=== PATIENT | male | born 1945 | race Caucasian/White ===

== ENCOUNTER → 2017-02-01 | Outpatient (CLI) | payer OTHER, BC | LOC: FIMAGING 12:39 | PROVIDERS: ATTEND Orthopaedic Surgery | DX: M17.12 Unilateral primary osteoarthritis, left knee (principal) ==

== ENCOUNTER 2017-02-27 07:12 | Observation (INO) | payer OTHER, BC ==
[2017-02-27] MEDS ORDERED: LIDOCAINE 1% 2 ML INJ ONE (07:36)
[2017-02-27] MEDS ORDERED: LIDOCAINE 1% 5 ML SDV ID PRN (08:26)
[2017-02-27] MEDS ORDERED: LR 1,000 ML IV ONE (08:26)
[2017-02-27] MEDS ORDERED: DEXAMETHASONE 4 MG/ML VIAL IVP ONE (08:30)
[2017-02-27] MEDS ORDERED: FAMOTIDINE 20 MG TAB PO ONE (08:30)
[2017-02-27] MEDS ORDERED: ACETAMINOPHEN 325 MG TAB PO ONE (08:30)
[2017-02-27] MEDS ORDERED: TRANEXAMIC ACID 3,000 MG in NS 50 ML IRR ONE (08:30)
[2017-02-27] MEDS ORDERED: CEFAZOLIN 2 GM/DEXTR 100 ML IV ONE (08:30)
[2017-02-27] MEDS ORDERED: CHLORHEXIDINE GLUC HIBICLENS 118 ML BTL TP ONE (08:30)
[2017-02-27] MEDS ORDERED: ROPI/epiNEPH/KETOROLAC JOINT COCKTAIL IU ONE (08:30)
[2017-02-27 08:34] LABS: ANION GAP 14 mEq/L (8-16); CALCIUM 9.4 mg/dL (8.5-10.4); CARBON DIOXIDE 22 mEq/l (22-31); CHLORIDE 113 mEq/L (97-110); CREATININE 0.9 mg/dL (0.7-1.3); GLOMERULAR FILTRATION RATE > 60; GLUCOSE 113 mg/dL (70-100); POTASSIUM 3.8 mEq/L (3.5-5.2); SODIUM 149 mEq/L (134-144)
[2017-02-27] MEDS ORDERED: MIDAZOLAM 2 MG/2 ML VIAL ONE (10:06)
[2017-02-27] MEDS ORDERED: LIDOCAINE 2% 100 MG/5 ML SYR ONE (10:20)
[2017-02-27] MEDS ORDERED: PROPOFOL/EMULSION 500 MG/50 ML BOTTLE IV ONE (10:20)
[2017-02-27] MEDS ORDERED: ROPIVACAINE HCL 150 MG/30 ML INJ ONE (10:51)
[2017-02-27] MEDS ORDERED: LACTULOSE 20 GM/30 ML UDCUP PO PRN (11:29)
[2017-02-27] MEDS ORDERED: DIPHENOXYLATE/ATROPINE LOMOTIL 1 TAB PO PRN (11:29)
[2017-02-27] MEDS ORDERED: ONDANSETRON DISINTEGRATING 4 MG TAB PO PRN (11:29)
[2017-02-27] MEDS ORDERED: PROMETHAZINE HCL 25 MG/ML INJ IVP PRN (11:29)
[2017-02-27] MEDS ORDERED: oxyCODONE IR 5 MG TAB PO PRN (11:29)
[2017-02-27] MEDS ORDERED: CYCLOBENZAPRINE 10 MG TAB PO PRN (11:29)
[2017-02-27] MEDS ORDERED: PHARMACY PAIN CONSULT 1 EA MISC PRN (11:29)
[2017-02-27] MEDS ORDERED: POLYETHYLENE GLYCOL 3350 17 GM PKT PO PRN (11:29)
[2017-02-27] MEDS ORDERED: TEMAZEPAM 15 MG CAP PO PRN (11:29)
[2017-02-27] MEDS ORDERED: MAGNESIUM HYDROXIDE 30 ML UDCUP PO PRN (11:29)
[2017-02-27] MEDS ORDERED: PROMETHAZINE HCL 25 MG SUPPR PR PRN (11:29)
[2017-02-27] MEDS ORDERED: METOCLOPRAMIDE 10 MG/2 ML VIAL IVP PRN (11:29)
[2017-02-27] MEDS ORDERED: ONDANSETRON 4 MG/2 ML VIAL IVP PRN (11:29)
[2017-02-27] MEDS ORDERED: diphenhydrAMINE 25 MG CAP PO PRN (11:29)
[2017-02-27] MEDS ORDERED: BISACODYL 10 MG SUPP PR PRN (11:29)
--- NOTE | 2017-02-27 11:29 | POSTOPPROG ---
Post Op Note Date of Operation: 02/27/17 Surgeon: Yola Rosario Blade Operator: cheryl rosario Anesthesiologist: dr. gordon Anesthesia: Spinal, Other (Specify) (adductor canal block) Pre-op Diagnosis: left knee OA Post-op Diagnosis: same Indication: left knee pain due OA that failed conservative measures Procedure: L med MPL robot assisted Findings: severe medial knee OA Inf/Abcess present in the surg proc area at time of surgery?: No EBL: 50-100
[2017-02-27] MEDS: ACETAMINOPHEN 325 MG TAB PO SCH ×3 (12:52→23:33)
[2017-02-27] MEDS: LR 1,000 ML IV SCH (12:52)
[2017-02-27] MEDS: ceFAZolin 2 GM/DEXTROSE 100 ML IV SCH (18:16)
[2017-02-27] MEDS: FAMOTIDINE 20 MG TAB PO SCH (21:59)
[2017-02-27] MEDS: ASPIRIN 325 MG TAB PO SCH (21:59)
[2017-02-27] MEDS: SENNOSIDES/DOCUSATE SODIUM TAB PO SCH (23:17)
[2017-02-28] MEDS: ceFAZolin 2 GM/DEXTROSE 100 ML IV SCH (01:53)
[2017-02-28] MEDS: LR 1,000 ML IV SCH (01:55)
[2017-02-28 05:29] LABS: HEMATOCRIT 36.1 % (40.0-51.0); HEMOGLOBIN 12.6 g/dL (13.7-17.5)
[2017-02-28] MEDS: ACETAMINOPHEN 325 MG TAB PO SCH (05:37)
[2017-02-28 07:58] VITALS: BP 120/78; PULSE 65; RESP 14; TEMP 97.8; O2SAT 93
--- NOTE | 2017-02-28 08:25 | SOAPPROG ---
SOAP Progress Note Assessment/Plan: Assessment: Patient is doing well POD 1 s/p L med MPL Pain management: pain is well controlled on oral pain meds. VTE ppx: recommend aspirin daily for 3 weeks, cont EDGAR and SCDs Anemia: level is expected initially postop. Asymptomatic. Continue to monitor D/c planning: d/c to home today pending release from PT Plan: 02/28/17 08:23 Subjective: Yossi is doing well today, denies SOB, chest pain and N/v. Objective: Vital Signs Temp Pulse Resp BP Pulse Ox 36.6 C 65 14 120/78 93 02/28/17 07:57 02/28/17 07:57 02/28/17 07:57 02/28/17 07:57 02/28/17 07:57 Laboratory Results 02/28/17 05:00 02/27/17 07:52 02/27/17 02/28/17 03/01/17 05:59 05:59 05:59 Intake Total 3620 Output Total 725 Balance 2895 LLE: incision dressing is clean and dry, NVI, +pf/df ICD10 Worksheet Patient Problems: Problems Problem Status Onset Primary localized osteoarthritis of left knee Acute
[2017-02-28] MEDS: ASPIRIN 325 MG TAB PO SCH (08:27)
[2017-02-28] MEDS: SENNOSIDES/DOCUSATE SODIUM TAB PO SCH (08:28)
[2017-02-28] MEDS: FAMOTIDINE 20 MG TAB PO SCH (08:29)
[2017-02-28] MEDS ORDERED: HYDROCHLOROTHIAZIDE 25 MG TAB PO SCH (09:00)
[2017-02-28] MEDS ORDERED: TAMSULOSIN HCL 0.4 MG CAP PO SCH (09:00)
[2017-02-28] MEDS ORDERED: VALSARTAN 160 MG TAB PO SCH (09:00)
[2017-02-28] MEDS ORDERED: NON-FORMULARY NEW DRUG (Valsartan/Hydrochlorothiazide [Valsartan-Hctz 320-25 Mg Tab] 1 EAC PO SCH (09:00)
--- NOTE | 2017-02-28 15:16 | GOP ---
[f rep st] OPERATIVE REPORT DATE OF OPERATION: 02/27/2017 SURGEON: Suzette Newell MD RUG SETTER AXMINSTER: Tamiko Newell PA-C. ANESTHESIA: Spinal. PREOPERATIVE DIAGNOSIS: Left knee osteoarthritis. POSTOPERATIVE DIAGNOSIS: Left knee osteoarthritis. PROCEDURE PERFORMED: Left medial compartment partial knee replacement with computer navigation and robotic assist. FINDINGS/PATHOLOGY: Severe medial compartment osteoarthritis. ESTIMATED BLOOD LOSS: 30 cc INDICATIONS: This is a 72-year-old male with severe and progressive pain and deformity of the left knee unresponsive to conservative care. Risks and benefits of the surgical intervention were explained in detail. DESCRIPTION OF PROCEDURE: The patient was brought to the operating room and placed on the table in supine position. Spinal anesthesia was induced without difficulty. A pneumatic tourniquet was applied about the left proximal thigh and the leg was prepped and draped in sterile fashion. Attention was turned first to the distal aspect of the left femur. At 3 cm proximal to the lateral rise of the femur, 2 percutaneous half pins were placed for fixation of the femoral array. In a similar fashion, 2 pins were placed anterolateral on the tibia for fixation of the tibial array. External land marking and registration of the hip center was performed without difficulty. After exsanguination by elevation, the tourniquet was inflated to 250 mmHg. Incision was made from the tibial tuberosity to the superior pole of the patella. Dissection was carried out through the subcutaneous tissue to the deep fascia using Bovie electrocautery for hemostasis. Medial parapatellar arthrotomy was carried out to the superior pole of the patella. The medial collateral ligament was elevated and the infrapatellar fat pad was resected. Internal femoral and tibial registration was carried out without difficulty and the femoral and tibial checkpoints were placed and verified for accuracy. Attention was turned to the femur. The foot print for the size 4 femoral component was cut with the 6 mm bur using the [employer] robotic system and verified for accuracy against the CT based plan. The hole was cut for the femoral post. In a similar fashion, the 6 mm bur was used to cut the foot print for the size 4 tibial component using the CHON system and verified for accuracy against the CT based plan. Attention was turned to the posterior aspect of the knee and remnants of the medial meniscus were excised. The posterior capsule was injected with ropivacaine, epinephrine and Toradol. Trial reduction was carried out and there was excellent range of motion, alignment and stability using the size 4 femoral component and the size 4 tibial component. 4 x 8 polyethylene. All trials were then removed. The joint was thoroughly irrigated and carefully dried. One package of cement and 1 gram of vancomycin were mixed in the vacuum mixer and placed on the fixation surfaces of all components. The components were implanted and all excess cement was thoroughly removed. Implant placement was verified against the CT view plan and found to be excellent. The tourniquet was deflated and all bleeders were coagulated. The wound was thoroughly irrigated and closed using interrupted sutures of 2-0 Vicryl for the joint capsule. The subcu was closed with 3-0 Vicryl and the skin with 4-0 Monocryl. Dermabond and Steri-Strips were applied, followed by a compressive dressing. The patient was then moved from the operating room to the recovery room in good condition, having tolerated the procedure well. CASE CLASSIFICATION: Clean. /[id number]/MODL MTDD
== END 2017-02-28 10:53 | disposition home or self-care (01) ==
LOC: F3N 07:12 → INTOOBSV 07:12 → F3N 12:18
PROVIDERS: ADMIT Orthopaedic Surgery; ATTEND Orthopaedic Surgery
PROC: 0SRD0JZ Replacement of Left Knee Joint with Synthetic Substitute, Open Approach (ICD-10-PCS; principal; 2017-02-27 10:15)
DX: M17.12 Unilateral primary osteoarthritis, left knee (principal)
CPT/HCPCS: 27446; 73560; 97110; 97116; 97161; 97165; C1713; C1776; G8978; G8979; G8980; G8987; G8988; G8989; J0171; J0690; J1100; J1885; J2001; J2250; J2704; J2795